=== PATIENT | female | born 1965 | race Caucasian/White ===

== ENCOUNTER 2017-07-02 10:57 | Outpatient (RCR) | payer OTHER | END 2017-07-10 14:40 | disposition still patient (30) | LOC: WSOH 10:57 | DX: M25.551 Pain in right hip (principal); W18.09XA Striking against other object with subsequent fall, initial encounter; Y99.0 Civilian activity done for income or pay ==

== ENCOUNTER 2017-08-13 10:37 | Outpatient (RCR) | payer OTHER | END 2017-08-14 15:16 | LOC: WSOH 10:37 | DX: Z09 Encounter for follow-up examination after completed treatment for conditions other than malignant neoplasm (principal); M25.551 Pain in right hip ==

== ENCOUNTER → 2022-05-09 | Outpatient (CLI) | payer OTHER ==
[~2022-05-09] MED LIST: MOTRIN 800800 MG/TAB PO; ROBAXIN 75750 MG/TAB PO; ULTRAM 50MG TAB50 MG PO
[2022-05-09 13:22] VITALS: BP 117/82; PULSE 68; TEMP 98.2
[2022-05-09 14:50] VITALS: BP 132/78; PULSE 62
== END ==
LOC: COL.RAD 12:00
DX: S39.012A Strain of muscle, fascia and tendon of lower back, initial encounter (principal)
CPT/HCPCS: J3301